=== PATIENT | male | born 1950 | race Caucasian/White ===

== ENCOUNTER → 2018-05-12 | Outpatient (CLI) | payer BC ==
--- NOTE | 2018-05-12 17:16 | CT ---
EXAMINATION TYPE: CT chest wo con DATE OF EXAM: 05/12/2018 COMPARISON: None HISTORY: Pleural plaque. CT DLP: 294.8 mGycm, Automated exposure control for dose reduction was used. CONTRAST: Performed injected with 0 mL of Isovue 300. TECHNIQUE: Axial images were obtained at 5 mm thick sections. Reconstructed images are reviewed on [employer] computer in the coronal plane. FINDINGS: Thyroid is not well visualized. Calcifications are along the bilateral diaphragms. There is some calcified pleural plaques present wi thin the bilateral lungs. Findings are likely related to prior specimens exposure. There is a 0.6 cm nodule at the right lung base. Series 4 image 49. History lateral nodule measuring 0.5 cm is on the right. Series 4 image 48. No enlarged mediastinal or hilar adenopathy is evident. The ascending aorta diameter at the level o f the main pulmonary artery is 3.6 cm. The main pulmonary artery diameter at the bifurcation is 2.3 cm. Minimal coronary artery calcification is present. Limited CT sections are obtained through the upper abdomen. Abdomen is essentially unremarkable. IMPRESSIONS: 1. Couple small nodules within the posterior lateral right lung base. 2. Bilateral diffuse pleural plaques with calcification. Findings a pleural plaques are likely relate d to asbestos exposure. Recommendations: 1. Close monitoring is recommended with follow-up CT in 3 months.
== END | disposition home or self-care (01) ==
LOC: RADCTMAIN 14:23
PROVIDERS: ATTEND Family Medicine
DX: J92.9 Pleural plaque without asbestos (principal); R91.8 Other nonspecific abnormal finding of lung field
CPT/HCPCS: 71250

== ENCOUNTER → 2018-08-13 | Outpatient (CLI) | payer BC ==
--- NOTE | 2018-08-13 13:09 | CT ---
EXAMINATION TYPE: CT chest wo con DATE OF EXAM: 08/13/2018 COMPARISON: Chest CT May 12, 2018 HISTORY: No complaints at time of scan CT DLP: 282.7 mGycm. Automated Exposure Control for Dose Reduction was Utilized. TECHNIQUE: CT scan of the thorax is performed without IV contrast. FINDINGS: LUNGS: Calcified pleural plaques bilaterally are redemonstrated. No suspicious focal consolidation or infiltrate. No pleural effusion or pneumothorax. Tracheobronchial tree is patent. No suspicious new nodules or masses. Small right basilar nodules are stable measuring up to 5 to 6 mm in size axial michael ge 49. MEDIASTINUM: Lack of IV contrast is noted to limit evaluation for mediastinal and especially hilar ad enopathy. There are no definitive greater than 1 cm hilar or mediastinal lymph nodes. No cardiomega ly or pericardial effusion is seen. OTHER: Central prominent left kidney is suggestive of parapelvic cysts unchanged from prior. IMPRESSION: Evidence of prior asbestos exposure. Stable right basilar nodularity. Advise CT in 6-12 m onths time.
--- NOTE | 2018-08-13 13:49 | US ---
EXAMINATION TYPE: US carotid duplex BILAT DATE OF EXAM: 08/13/2018 COMPARISON: US CLINICAL HISTORY: G45.9 Transient cerebral ischemic attack. EXAM MEASUREMENTS: RIGHT: Peak Systolic Velocity (PSV) cm/sec ----- Right CCA: 90.7 ----- Right ICA: 79.0 ----- Right ECA: 64.2 ICA/CCA ratio: 0.9 RIGHT: End Diastole cm/sec ----- Right CCA: 29.9 ----- Right ICA: 38.9 ----- Right ECA: 11.9 LEFT: Peak Systolic Velocity (PSV) cm/sec ----- Left CCA: 89.4 ----- Left ICA: 90.7 ----- Left ECA: 85.4 ICA/CCA ratio: 1.0 LEFT: End Diastole cm/sec ----- Left CCA: 28.6 ----- Left ICA: 37.8 ----- Left ECA: 16.7 VERTEBRALS (direction of flow): Right Vertebral: Antegrade Left Vertebral: Antegrade Rhythm: Normal No significant stenosis seen, no elevated velocities. minimal plaque noted. IMPRESSION: No evidence for hemodynamically significant stenosis. Criteria for Assigning % of Stenosis / Diameter reduction (Estimation based on the indirect measurements of the internal carotid artery velocities (ICA PSV). 1. Normal (no stenosis)=ICA PSV < 125 cm/s: ratio < 2.0: ICA EDV<40 cm/s. 2. Less than 50% stenosis=ICA PSV < 125 cm/s: ratio < 2.0: ICA EDV<40 cm/s. 3. 50 to 69% stenosis=ICA PSV of 125 to 230 cm/s: ration 2.0 ? 4.0: ICA EDV 40-100 cm/s. 4. Greater than 70% stenosis to near occlusion= ICA PSV > 230 cm/s: ratio > 4.0: ICA EDV > 100 cm/s. 5. Near occlusion= ICA PSV velocities may be low or undetectable: variable ratio and ICA EDV. 6. Total occlusion=unable to detect flow.
--- NOTE | 2018-08-15 07:50 | ECHOF ---
Referral Reason:G45.9 Transient cerebral ischemic attack MEASUREMENTS -------- HEIGHT: 175.3 cm WEIGHT: 79.4 kg BP: IVSd: 1.3 cm (0.6 - 1.1) LVIDd: 3.7 cm (3.9 - 5.3) LVPWd: 1.4 cm (0.6 - 1.1) IVSs: 1.8 cm LVIDs: 2.1 cm LVPWs: 1.7 cm LAESV Index (A-L): 21.47 ml/m Ao Diam: 2.4 cm (2.0 - 3.7) AV Cusp: 1.9 cm (1.5 - 2.6) LA Diam: 3.8 cm (2.7 - 3.8) MV EXCURSION: 10.933 mm (> 18.000) MV EF SLOPE: 54 mm/s (70 - 150) EPSS: 0.9 cm MV E Lalo: 0.75 m/s MV DecT: 257 ms MV A Lalo: 0.63 m/s MV E/A Ratio: 1.20 AR PHT: 347 ms RAP: 5.00 mmHg RVSP: 21.98 mmHg FINDINGS -------- Sinus rhythm. This was a technically good study. The left ventricular size is normal. There is moderate concentric left ventricular hypertrophy. O verall left ventricular systolic function is low-normal with, an EF between 50 - 55 %. The right ventricle is normal in size. The left atrial size is normal. Normal LA size by volume 22+/-6 ml/m2. The right atrial size is normal. Aortic valve is trileaflet and is mildly thickened. Trace amount of aortic regurgitation. The mitral valve leaflets are mildly thickened. Mild mitral regurgitation is present. Mild tricuspid regurgitation present. The right ventricular systolic pressure, as measured by Doppl er, is 21.98mmHg. There is no pulmonic regurgitation present. The aortic root size is normal. Normal inferior vena cava with normal inspiratory collapse consistent with estimated right atrial pre ssure of 5 mmHg. There is no pericardial effusion. CONCLUSIONS -------- 1. Sinus rhythm. 2. This was a technically good study. 3. The left ventricular size is normal. 4. There is moderate concentric left ventricular hypertrophy. 5. Overall left ventricular systolic function is low-normal with, an EF between 50 - 55 %. 6. The right ventricle is normal in size. 7. The left atrial size is normal. 8. Normal LA size by volume 22+/-6 ml/m2. 9. The right atrial size is normal. 10. Aortic valve is trileaflet and is mildly thickened. 11. Trace amount of aortic regurgitation. 12. The mitral valve leaflets are mildly thickened. 13. Mild mitral regurgitation is present. 14. Mild tricuspid regurgitation present. 15. The right ventricular systolic pressure, as measured by Doppler, is 21.98mmHg. 16. There is no pulmonic regurgitation present. 17. The aortic root size is normal. 18. Normal inferior vena cava with normal inspiratory collapse consistent with estimated right atrial pressure of 5 mmHg. 19. There is no pericardial effusion. COMIC ARTIST: Violetta Rubi RDCS
== END ==
LOC: RADCTMAIN 12:41
PROVIDERS: ATTEND Family Medicine
DX: G45.9 Transient cerebral ischemic attack, unspecified (principal); R91.8 Other nonspecific abnormal finding of lung field; J92.0 Pleural plaque with presence of asbestos; I08.3 Combined rheumatic disorders of mitral, aortic and tricuspid valves
CPT/HCPCS: 71250; 93306; 93880

== ENCOUNTER → 2024-06-20 | Outpatient (CLI) | payer MEDICARE, BC ==
--- NOTE | 2024-06-20 12:18 | CT ---
EXAMINATION TYPE: CT chest wo con DATE OF EXAM: 06/20/2024 COMPARISON: 08/13/2018 CLINICAL INDICATION: Male, 74 years old with history of R91.1 SOLITARY PULMONARY NODULE; PH[facility], SOLITAR Y PULMONARY NODULE TECHNIQUE: CT scan of the thorax is performed without IV contrast. CT DLP: 285.[address] CTDI: mGy Automated exposure control for dose reduction was used. FINDINGS: LUNGS: Again noted are diffuse calcified pleural plaques compatible with asbestos exposure. The lungs are grossly clear, there is no concerning parenchymal mass or nodule identified. There is no pleur al effusion or pneumothorax seen. The tracheobronchial tree is patent. MEDIASTINUM: Lack of IV contrast is noted to limit evaluation for mediastinal and especially hilar ad enopathy. There are no definitive greater than 1 cm hilar or mediastinal lymph nodes. No cardiomega ly or pericardial effusion is seen. OTHER: No additional significant abnormality is seen. IMPRESSION: 1. Asbestos related pleural disease. No suspicious pulmonary nodule. Follow-up recommendations for incidental pulmonary nodules are per [employer] or [employer]. [facility], , 06/20/2024 12:15 PM
== END | disposition home or self-care (01) ==
LOC: RADCTMAIN 11:10
PROVIDERS: ATTEND Family Medicine
DX: J92.0 Pleural plaque with presence of asbestos (principal); R91.1 Solitary pulmonary nodule
CPT/HCPCS: 71250